=== PATIENT | male | born 1965 | race Caucasian/White ===

== ENCOUNTER 2018-04-28 07:33 | Day surgery (SDC) | payer OTHER, SELFPAY ==
[2018-04-28 08:19] VITALS: BP 133/91; PULSE 78; RESP 16; TEMP 36.2; O2SAT 99
[2018-04-28] MEDS: Lactated Ringers 1,000 ML 30 ML IV (08:50)
[2018-04-28] MEDS: Bupivacaine LIPOSOME/PF 133 MG/10 ML VIAL IJ (10:11)
[2018-04-28] MEDS: Lidocaine 1% Multi-Dose 50 ML VIAL (10:56)
[2018-04-28] MEDS: Acetaminophen 325 MG TAB 650 MG PO (11:38)
[2018-04-28 11:55] VITALS: BP 113/75; PULSE 71; RESP 18; TEMP 36.1; O2SAT 96
[2018-04-28] MEDS: traMADol 50 MG TAB PO (12:45)
[2018-04-28 14:16] VITALS: BP 119/73; PULSE 71; RESP 16; TEMP 36.2; O2SAT 98
--- NOTE | 2018-04-28 15:29 | ROE_ITS ---
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 Pain developed about 6 months ago after lifting some heavy equipment. He subsequently noted a bulge in the left groin. Continues to experience pain with lifting heavy objects, pushing objects, or pulling heavy objects. Pain is nonradiating. Is always associated with a lump in his groin. The lump does disappear when he lays flat. He denies any associated fever chills, nausea, vomiting, or constipation. It was recommended he undergo open repair of the left inguinal hernia. The procedure was discussed with him, and the risk of the procedure were discussed. All his questions were answered to his satisfaction. Consent was obtained to proceed with open left inguinal hernia repair. Findings: The left inguinal canal was explored and a large cord lipoma and indirect hernia sac were identified. The hernia sac and cord lipoma were subsequently resected mesh was placed to reinforce the floor the inguinal canal. Procedure Description: The patient was brought to the operating room. A time-out was completed verifying correct patient , procedure, site , allergies, medications, positioning, implants, and fire risk, prior to beginning the procedure. MAC anesthesia was induced. The left groin was prepped with chloraprep, and draped in the standard sterile fashion. The pubic tubercle, and anterior superior iliac spine (ASIS) were marked. A skin incision was marked starting just laterally to the pubic tubercle in a linear oblique fashion toward the ASIS. A field block was produced by injecting local along the proposed skin incision. Additional local anesthesia was injected during the procedure under the external oblique aponeurosisto , just medial to the ASIS, to block the ilioinguinal nerve. Addition local was injected as needed during the case. I began by incising the previously marked incision line with a scalpel. The incision was deepened though Martinez's and Camper's fascia with electocautery down until the aponeurosis of the external oblique was encountered. This was cleaned and the external ring exposed. Hemostasis was obtained in the wound with cautery. A stab incision was made in the midportion of the external oblique aponeurosis in the parallel to the fibers. Flaps of the external oblique were developed cephalad, and inferiorly. The cord was identified, gently dissected at the pubic tubercle, and encircled with a chan drain, The cord was then explored, the vas deferens, and testicular vesicles were protected a indirect hernia sac was found anteromedially to the cord, which was subsequently dissected, twisted, and suture ligated after its contents were reduced. The redundant sac was discarded, and the remainder reduced. The femoral canal was palpated and no hernia was identified. A large cord lipoma was also found, and subsequently suture ligated at the level of the internal ring. I then placed a mesh to re-enforce the floor of the inguinal canal, and create a new internal ring. The floor of the inguinal canal was cleaned medially over the pubic tubercle, cephalad over the conjoint tendon, laterally over the aponeurosis of the internal oblique, and inferiorly the inguinal ligament. A mesh was then laid in the floor of the canal with the mesh overlying the pubic tubercle medially, conjoint tendon cephalad, internal oblique aponeurosis laterally, and shelving edge of inguinal ligament inferiorly. The mesh was then inspected for apposition to the tissue, and pressed into place. The tip of a Debakey forceps easily passed through the new internal ring next the cord structures. The wound was then irrigated. Hemostasis again checked, and chan drain removed. I closed the wound in layers, with 2-0 vicryl for the external oblique in a running fashion, 3-0 vicryl to approximate Martinez's fascia, and the skin was closed with 4-0 vicryl with a running subcuticular fashion. A dressing was applied. The count was reported correct times two. No apparent complications during the case. The patient was brought to the PACU in good condition.
--- NOTE | 2018-04-28 15:40 | PDOC.DSDIS_ITS ---
Discharge Plan Disposition Patient Disposition: HOME Condition: Good Discharge Details Reason For Visit: left inguinal hernia repair Attending Provider: Jay Hollins Primary Care Provider: Vikash Aguero Home Meds and New Rx's Prescriptions: New acetaminophen [Tylenol] 325 mg Tablet 650 mg PO Q4H PRN PRNQty: 0 RF: 0 tramadol 50 mg Tablet 50 mg PO Q6H PRN PRNQty: 12 RF: 0 Continued ibuprofen [Advil] 200 mg Tablet 200 mg PO QID PRNRF: 0 Discharge Instructions Instructions: Inguinal Hernia Repair (DC) Additional Instructions: Dr. Jay Hollins Post-Operative Discharge Instructions 1. Because there will be medication in your system for the next 24 hours, you may feel a little sleepy. Your coordination will be affected. Therefore: * Do not drive or operate dangerous equipment for 24 hours. * Do not drink alcohol beverages for 24 hours (not even beer). * Plan to go home and rest for the day. Restrictions: * Do not lift, push, or pull, over 20lbs for 6 weeks. * No strenuous bending or twisting for 6 weeks, if it hurts stop. * No baths, you can shower. Let warm soapy water run over wound, then pat wound dry. Activity: * The day of surgery spend most of the day resting in a comfortable bed or recliner. 2-3 times during the day get up and walk around the house. * The day after surgery, or after your discharge, walk at least 3 times a day and spend increasing amounts of time walking and sitting up. If you are tired rest, but keep moving as able. Diet: * Resume home diet as tolerated. * Start with a light diet, your appetite will improve with time. * Drink at least 4-6 glasses of water per day to keep hydrated. Wound Care: * Removed dressing in 24 hrs, Skin glue will wear off with time. * You may cover the wound with a dry sterile dressing to keep clothing from rubbing against the wound. Call for appointment . Continue all your regular medications unless directed otherwise. Call the office or the Hospital Biomedical Equipment Technician , If you have: * Pain not controlled with pain medication. * Nausea and vomiting. * Temperature greater than 101 degrees Fahrenheit. * Drainage from your wound that soaks through your dressing. *No more than 4000 milligrams of Tylenol in 24 hours. Narcotic pain medication can be constipating, if you have not had a bowel movement within 3 days use a laxative, I recommend Milk of Magnesia (MOM) 1oz. every 6 hrs until you have a bowel movement. I understand the above instructions and have no questions. Signature of Patient or Responsible Adult Escort Date/Time Name of Responsible Adult Escort Signature of Nurse Date/Time Revised 08/26/10 Stand Alone Forms: Aaliyah Munroe (DSU) Referrals: Jay Hollins DO [ [facility] STAFF PHYSICIAN] - 05/12/18 9:00 am (Follow up after Inguinal Hernia repair) Activity:: see instructions Remove Dressings/Wound Care:: 24 hours Shower/Bathe:: 24 hours Diet:: As Tolerated Discharge Orders Discharge Orders: Discharge Order (Routine); Ordered 04/28/18 Ordered By: Jay Hollins Discharge Data Discharge Date/Time-TO BE ENTERED AT DEPARTURE: 04/28/18 14:26 DS: Diagnosis Discharge Diagnosis (1) Left inguinal hernia: Status: Acute Asessment and Plan: Open inguinal Hernia repair performed
== END 2018-04-28 14:26 | disposition home or self-care (01) ==
PROVIDERS: PCP Family Medicine; Visit Provider Surgery
PROC: (CPT 49505; principal; 2018-04-28 09:00)
DX: K40.90 Unilateral inguinal hernia, without obstruction or gangrene, not specified as recurrent (principal); D17.6 Benign lipomatous neoplasm of spermatic cord
CPT/HCPCS: 49505; C1781; J0690; J1885; J2250; J2405

== ENCOUNTER 2021-03-26 02:54 | Emergency (ER) | payer OTHER, SELFPAY ==
[2021-03-26] VITALS (14 sets, daily range): BP systolic 111–123; BP diastolic 70–86; PULSE 61–87; RESP 14–23; TEMP 36.5; O2SAT 96–99
--- NOTE | 2021-03-26 03:00 | RT.EKG_ITS ---
APPROVED REPORT Exam: Resting ECG Reason for Exam: chest pain Patient Location: E HR:68 bpm ECG Measurements Heart Rate 68 AXIS MD 183 P 42 QRSd 110 QRS 24 QT 388 T -1 QTc 412 Conclusion Sinus rhythm...normal P axis, V-rate 60- 99
--- NOTE | 2021-03-26 03:00 | DI.RAD_ITS ---
Exam(s) XR PORTABLE CHEST AP EXAM: XR PORTABLE CHEST AP CLINICAL HISTORY: syncope, fever. TECHNIQUE: 2D digital imaging was performed. COMPARISON: No exams were available for comparison FINDINGS: LUNGS: Clear. No pleural abnormality seen. HEART: Normal. MEDIASTINUM: Normal. OTHER FINDINGS: None. IMPRESSION: No acute pulmonary findings. DATA REPOSITORY: RADIATION DOSE DELIVERED: Total DLP
--- NOTE | 2021-03-26 03:13 | W.ED.GENAD ---
Discharge Plan Disposition Patient Disposition: HOME Condition: Improving Discharge Details Clinical Impression: Syncope, Acute dehydration, Viral syndrome Primary Care Provider: Vikash Aguero ED Provider: Shree Colon Home Meds and New Rx's Prescriptions: Continued ibuprofen [Advil] 200 mg Tablet 200 mg PO QID PRNRF: 0 acetaminophen [Tylenol] 325 mg Tablet 650 mg PO Q4H PRN PRNQty: 0 RF: 0 Discharge Instructions Instructions: Dehydration (ED), Syncope (ED), Viral Syndrome (ED) Additional Instructions: Your COVID-19 test is pending. You will receive a call from our staff once it has resulted. Continue small, frequent sips of fluids to maintain good hydration today. Slowly advance your diet. Your work-up in the emergency department included chest x-ray, negative influenza screening, blood work including cardiac troponins. Please follow-up with regular doctor if not improving in 2 to 3 days time. Stand Alone Forms: PENDING COVID-19 TESTING Medical Decision Making 56-year-old male states he has had 3 days of fever, chills, body ache, and dry cough. States he was in bed, awoke to use the bathroom, felt weak and lightheaded and sick to the ground with a question of a brief episode of syncope. There was no seizure-like activity, patient did not turn blue or have cessation of breathing. EMS was called and patient brought to the ER. He arrives to the ER improved, oxygenating normally with a pulse in the 70s. Differential diagnosis is broad and includes dehydration, vagal mediated syncope, viral syndrome, must exclude cardiac event. Placed on a molybdenum steamer operator, given fluid bolus, referred for laboratory testing & chest x-ray. Chest x-ray without acute findings. Laboratories do note a white count of 13, hematocrit 44, platelets 236. Sodium 139, potassium 4.3, chloride 106, BUN 13, creatinine 1.0. Note is made of albumin 3.2. Troponin negative x2. Negative influenza screening . Patient did receive 3 L of fluid before being able to produce urine. The patient felt improved, able to ambulate and take liquids by mouth without difficulty. Stable and appropriate for discharge to home. HPI General Mode of arrival: EMS. Date/Time Provider Initiated Documentation: 03/26/21 02:56. Limitations to Documentation: no limitations. Information obtained by: patient and EMS. History of Present Illness 56 year old M presents to the emergency department with the chief complaint of Syncope at home, fever this week, described as moderate, Patient reports no radiation. Patient started experiencing this day(s) and it has been intermittent. No relieving factors improve symptom(s), No exacerbating factors reported . Patient notes cough, fever/chills, syncope and other (Body ache, dry cough); denies chest pain and shortness of breath. Patient did receive the following treatments prior to arrival, none Related Data Home Medications Medication Instructions Recorded Confirmed acetaminophen [Tylenol] 650 mg PO Q4H PRN PRN #0 tab 04/28/18 07/27/18 ibuprofen [Advil] 200 mg PO QID PRN 04/28/18 07/27/18 Previous Rx's Medication Instructions Recorded acetaminophen [Tylenol] 650 mg PO Q4H PRN PRN #0 tab 04/28/18 Allergies Allergy/AdvReac Type Severity Reaction Status Date / Time No Known Allergies Allergy Verified 07/27/18 11:30 Review of Systems Narrative: Dry cough, body ache, fever and chills, cough children. Immunized against COVID-19. Feels improved. Denies chest pain. No headache. No injury, no neck or back pain. 8 systems reviewed and otherwise negative [facility] Active Problem List (Updated 03/26/21 @ 07:10 by Shree Colon MD) Syncope (Chronic) Acute dehydration (Acute) Viral syndrome (Acute) Well adult (Acute) Well adult (Chronic) Grade II hemorrhoids (Chronic 09/04/17) Left inguinal hernia (Acute) Medical History (Updated 03/26/21 @ 07:10 by Shree Colon MD) Lower urinary tract symptoms (LUTS) Surgical History Appendectomy H/O left inguinal hernia repair (04/28/18) Dr Hollins Family History Mother Hyperlipidemia Father Hyperlipidemia Sister No problems noted. Sister No problems noted. Sister No problems noted. Sister No problems noted. Brother No problems noted. Son No problems noted. Family history Diabetes Heart disease Neoplasm Social History Smoking/Tobacco Use Status: Never Smoking risk assessment performed?: Yes Alcohol Intake: current Alcohol Intake frequency: 0-2 drinks per day Drug use: Never Substance use type: does not use Household members: spouse and children Housing: house Do you need help understanding health information?: Rarely Pets and animals: Yes Pets and animals: dog(s) and farm animals Sexually active: Yes Do you think of yourself as: straight/heterosexual Current gender identity: male What is your relationship status?: How often do you talk on the phone with friends or family?: decline to answer How often do you get together with friends or relatives?: decline to answer How often do you attend lutheran or christian services?: decline to answer Do you belong to any clubs or organized social groups?: no Panel score (0-1 are the most socially isolated patients): 1 What type of physical activity do you participate in: decline to answer Duration: decline to answer Frequency: decline to answer Doris/Catholic: Yarsani Special doris needs: No Seatbelt use: always Helmet use: Yes Drive intox or ride w/intox chassis driver: No Do you feel safe at home: Yes Do you feel safe in your relationship?: Yes Exam Narrative Exam Narrative: GEN: awake, alert, oriented 3. Pleasant, well groomed, interactive. HEAD: Normocephalic, atraumatic ENT: Mucous membranes dry, oropharynx unremarkable, External ear exam unremarkable EYES: PERRL, EOMI NECK: Full ROM, no ANNIE, no menigismus CHEST/RESP: Nontender, clear to auscultation bilateral, no wheeze/rhonchi/rales CARDIOVASCULAR: RRR, no murmur, rub lesli. 2+ Rad pulse bilateral ABDOMEN: Soft, nontender, no mass. +Bowel sounds EXT: Full ROM, no edema, no rash Neuro: Grossly normal neurologic exam, conversant, interactive. Psych: Speech fluent, thoughts congruent, affect normal
[2021-03-26] MEDS: Normal Saline 1,000 ML 1000 ML IV ×3 (03:15→06:55)
[2021-03-26 03:21] LABS: Abs Immature Grans 0.05 10^3/uL (0.0-0.06); Absolute Basophil Count 0.04 10^3/uL (0.0-0.2); Absolute Eosinophil Count 0.21 10^3/uL (0.0-0.7); Absolute Lymphocyte Count 1.51 10^3/uL (1.2-3.4); Absolute Neutrophil Count 10.95 10^3/uL (1.2-6.7); Basophils % 0.3; Eosinophils % 1.5; HCT 44.4 % (40.0-50.0); HGB 14.4 g/dL (13.5-17.5); Immature Grans % 0.4; Lymphocytes % 10.9; MCH 28.6 pg (27.0-33.0); MCHC 32.4 % (32.0-36.0); MCV 88.1 fL (80-95); MPV 10.2 fL (8.0-11.0); Monocytes % 7.9; Nucleated RBC 0 %; Platelet Count 236 10^3/uL (130-400); RBC 5.04 10^6/uL (4.36-5.78); RDW 13.1 % (11.8-14.1); RDW-SD 42.5 fL; WBC 13.86 10^3/uL (4.4-10.8)
[2021-03-26 03:22] LABS: Absolute Monocyte Count 1.09 10^3/uL (0.1-0.8)
[2021-03-26 03:33] LABS: ALT 32 U/L (16-63); AST 21 U/L (15-37); Albumin 3.2 g/dL (3.4-5.0); Alkaline Phosphatase 69 U/L (46-116); BUN 13 mg/dL (7-18); Bilirubin, Total 0.6 mg/dL (0.2-1.0); Chloride 106 mmol/L (98-107); Glucose 155 mg/dL (74-106); Magnesium 1.9 mg/dL (1.8-2.4); Potassium 4.3 mmol/L (3.5-5.1); Sodium 139 mmol/L (136-145); Total Protein 6.7 g/dL (6.4-8.2); Troponin I < 0.05 ng/mL (<0.06)
--- NOTE | 2021-03-26 04:02 | DI.VRAD_ITS ---
PROCEDURE INFORMATION: Exam: XR Chest Exam date and time: 03/26/2021 3:13 AM Age: 56 years old Clinical indication: Fever and other: Syncope; Patient HX: Syncope, fever TECHNIQUE: Imaging protocol: XR of the chest. Views: 1 view. COMPARISON: No relevant prior studies available. FINDINGS: Lungs: Unremarkable. No consolidation. Pleural spaces: Unremarkable. No pleural effusion. No pneumothorax. Heart/Mediastinum: Unremarkable. No cardiomegaly. Bones/joints: Moderate arthropathy noted in both shoulders. Narrowing of the acromial humeral space is noted, suggesting chronic rotator cuff pathology. IMPRESSION: No acute cardiopulmonary abnormality. Dictated and Authenticated by: Noah Gonzalez MD. Ordering:CARMELITA Swann MD
--- NOTE | 2021-03-26 04:20 | NUR.NOTE ---
Nursing Note: Patient IV Fluids completed. RN attempted to collect urine specimen per order however, patient denied needing to voice. Dr. Colon notified of completed fluids and patient inability to provide sample; Dr. Colon ordered to administer an additional bolus of NS 1,000 mL.
--- NOTE | 2021-03-26 05:18 | NUR.NOTE ---
Nursing Note: Patient resting in bed at this time with eyes closed. Respirations even and non-labored. Vital signs remain stable. No signs of distress noted at this time. Call light within reach of patient.
[2021-03-26 06:28] LABS: Troponin I < 0.05 ng/mL (<0.06)
[2021-03-27 15:03] LABS: COVID-19 RT-PCR UVMMC Result Negative (Negative)
--- NOTE | 2021-03-29 08:48 | NUR.NOTE ---
negative flu and covid result relayed to pt via phone.Nursing Note:
== END 2021-03-26 08:18 | disposition home or self-care (01) ==
PROVIDERS: Emergency Provider Emergency Medicine; PCP Family Medicine
DX: R55 Syncope and collapse (principal); R50.9 Fever, unspecified; R07.9 Chest pain, unspecified; E86.0 Dehydration; B34.9 Viral infection, unspecified; Z20.822 Contact with and (suspected) exposure to COVID-19
CPT/HCPCS: 80053; 87449; 93005; 96360; 96361; 99284; U0003; 71045; 81003; 83735; 84484; 85025; 93010

== ENCOUNTER 2022-06-17 08:56 | Outpatient (CLI) | payer OTHER, SELFPAY ==
[2022-06-17 12:53] LABS: Calculated LDL 85 mg/dL (<100); Cholesterol 174 mg/dL (<200); HDL Cholesterol 64 mg/dL (40-60); Triglyceride 125 mg/dL (<150)
== END 2022-06-17 08:57 | disposition home or self-care (01) ==
LOC: LOS 08:56
PROVIDERS: PCP Family Medicine; Referring Provider Family Medicine; Visit Provider Family Medicine
DX: E78.5 Hyperlipidemia, unspecified (principal); Z12.5 Encounter for screening for malignant neoplasm of prostate
CPT/HCPCS: 36415; 80061; 84153

== ENCOUNTER 2022-12-17 17:32 | Emergency (ER) | payer OTHER, SELFPAY ==
[2022-12-17 17:35] VITALS: BP 125/78; PULSE 65; RESP 14; TEMP 36.4; O2SAT 98
--- NOTE | 2022-12-17 17:45 | DI.RAD_ITS ---
Exam(s) XR ANKLE LT COMPLETE EXAM: XR ANKLE LT COMPLETE CLINICAL HISTORY: pain. TECHNIQUE: 2D digital imaging was performed. COMPARISON: No exams were available for comparison FINDINGS: 3 views There is soft tissue swelling over the lateral malleolus but no fracture evident. No evidence of acute fracture or widening of the ankle mortise. Talar dome appears unremarkable. Os seous density subjacent to the medial malleolus is most probably an accessory ossicle and does not benítez ve the appearance of a typical avulsion fragment. No tarsal coalition evident. IMPRESSION: No acute fracture evident. DATA REPOSITORY: RADIATION DOSE DELIVERED:
--- NOTE | 2022-12-17 17:48 | W.ED.GENAD ---
Discharge Plan Disposition Patient Disposition: Home Condition: Stable Discharge Details Clinical Impression: Left ankle sprain Primary Care Provider: Vikash Aguero ED Provider: Noah Anthony Home Meds and New Rx's Prescriptions: Continued ibuprofen [Advil] 200 mg Tablet 200 mg PO QID PRN Patient Comments: no longer taking 12/17/22 acetaminophen [Tylenol] 325 mg Tablet 650 mg PO Q4H PRN PRNQty: 0 0RF Patient Comments: no longer taking 12/17/22 Discharge Instructions Instructions: Ankle Sprain (ED) Additional Instructions: Follow up with your primary care provider if not improving in a week use the walking boot until pain free If you feel more ill or have severe worsening pain return to the emergency department Medical Decision Making 57 yo male comes in after he was stepping off his tractor and rolled his left ankle. Denies hitting head or loc, no other injuries and no pain elsewhere. HE arrives stable speaking clearly in no distress. He localizes the pain to the left lateral ankle without visible or palpable deformities. No tenderness in the knee or proximal/mid tib/fib. He has full rom and intact sensation and pulses, no pain over the metatarsals. Suspect sprain but will xray to evaluate for for fracture. imaging negative, pt stable, suspect sprain, will place in walking boot and he has crutches and advised to use as needed, weight bearing as tolerated. Advised to f/u with pcp if not improving within a week Differential Diagnosis Differential Diagnosis: sprain, strain, fracture Imaging Data Radiologic Study: Attestation: I personally reviewed and interpreted this imaging study as follows: Imaging: X-Ray My impression: no acute findings HPI General Date/Time Provider Initiated Documentation: 12/17/22 17:40. Limitations to Documentation: no limitations. Information obtained by: patient. History of Present Illness 57 year old M presents to the emergency department with the chief complaint of left ankle pain, described as moderate, Patient started experiencing this minute(s) (15) and it has been constant. No relieving factors improve symptom(s), No exacerbating factors reported . Patient notes no other symptoms.. Patient did receive the following treatments prior to arrival, none Related Data Home Medications Medication Instructions Recorded Confirmed acetaminophen 325 mg tablet 650 mg PO Q4H PRN PRN #0 tabs 04/28/18 06/17/22 (Tylenol) ibuprofen 200 mg tablet (Advil) 200 mg PO QID PRN 04/28/18 06/17/22 Previous Rx's Medication Instructions Recorded acetaminophen 325 mg tablet 650 mg PO Q4H PRN PRN #0 tabs 04/28/18 (Tylenol) Allergies Allergy/AdvReac Type Severity Reaction Status Date / Time No Known Allergies Allergy Verified 12/17/22 17:37 General Stated Complaint: Orthopedic GRIS: 4 Review of Systems All systems reviewed & are unremarkable except as noted in HPI and below Constitutional Constitutional: Denies chills, Denies fever(s) and Denies weakness Cardiovascular Cardiovascular: Denies chest pain and Denies dyspnea Respiratory Respiratory: Denies cough and Denies dyspnea Gastrointestinal Gastrointestinal: Denies abdominal pain, Denies nausea and Denies vomiting Neurologic Neurologic: Denies weakness PFSH All Active Problems (Updated 12/17/22 @ 19:03 by Noah Anthony MD) Syncope (Chronic) Acute dehydration (Acute) Viral syndrome (Acute) Left ankle sprain (Acute) Well adult (Acute) Well adult (Chronic) Grade II hemorrhoids (Chronic 09/04/17) Left inguinal hernia (Acute) Return to office as needed Medical History (Updated 12/17/22 @ 19:03 by Noah Anthony MD) Lower urinary tract symptoms (LUTS) Surgical History Appendectomy H/O left inguinal hernia repair (04/28/18) Dr Hollins Family History Mother Hyperlipidemia Father Hyperlipidemia Sister No problems noted. Sister No problems noted. Sister No problems noted. Sister No problems noted. Brother No problems noted. Son No problems noted. Family history Diabetes Heart disease Neoplasm Social History (Updated 06/18/22 @ 16:09 by Dulce Maria Sexton) Smoking/Tobacco Use Status: Never Second Hand Exposure: Yes Smoking risk assessment performed?: Yes Alcohol Intake: current Alcohol Intake frequency: a few times a week Alcohol type: beer Drug use: Never Substance use type: does not use Household members: spouse and children Housing: house Do you need help understanding health information?: Rarely Pets and animals: Yes Pets and animals: dog(s) and farm animals Sexually active: Yes Do you think of yourself as: straight/heterosexual Current gender identity: male What is your relationship status?: How often do you talk on the phone with friends or family?: decline to answer How often do you get together with friends or relatives?: decline to answer How often do you attend latter day or samaritan services?: decline to answer Do you belong to any clubs or organized social groups?: no Panel score (0-1 are the most socially isolated patients): 1 What type of physical activity do you participate in: decline to answer Duration: decline to answer Frequency: decline to answer Doris/Spiritism: Congregation Special doris needs: No Seatbelt use: always Helmet use: Yes Drive intox or ride w/intox team driver: No Do you feel safe at home: Yes Do you feel safe in your relationship?: Yes Exam Const General: no acute distress Orientation: alert HENMT Head: normal to inspection Ears: external ears normal General nose exam: external nose normal Mouth: moist mucous membranes Eyes General: appearance normal, both eyes and all related structures Neck Neck: normal visual inspection Resp Effort & Inspection: normal respiratory effort and able to speak in complete sentences Cardio Rate: regular rate Skin General skin exam: no rashes or lesions noted Neuro General: patient alert and patient oriented x3 Extrem General: normal to inspection, full ROM and capillary refill normal Psych Mental Status: mental status grossly normal Course Vital Signs Vital signs: Vital Signs Temperature 36.4 C L 12/17/22 17:35 Pulse 65 12/17/22 17:35 Respiratory Rate 14 12/17/22 17:35 Blood Pressure 125/78 12/17/22 17:35 Pulse Oximetry 98 12/17/22 17:35 Temperature 36.4 C L 12/17/22 17:35 Temperature Source Skin 12/17/22 17:35 Pulse 65 12/17/22 17:35 Respiratory Rate 14 12/17/22 17:35 Blood Pressure 125/78 12/17/22 17:35 Blood Pressure Position Sitting 12/17/22 17:35 Pulse Oximetry 98 12/17/22 17:35 Oxygen Delivery Method Room Air 12/17/22 17:35 Oxygen Flow Rate 0 12/17/22 17:35 Pain Level 7 12/17/22 17:35
[2022-12-17] MEDS: Ibuprofen 600 MG TAB PO (18:02)
== END 2022-12-17 19:29 | disposition home or self-care (01) ==
PROVIDERS: Emergency Provider Emergency Medicine; PCP Family Medicine
DX: S93.402A Sprain of unspecified ligament of left ankle, initial encounter (principal); X50.1XXA Overexertion from prolonged static or awkward postures, initial encounter
CPT/HCPCS: 99283; 73610

== ENCOUNTER 2023-06-18 12:23 | Outpatient (CLI) | payer OTHER, SELFPAY ==
[2023-06-18 13:38] LABS: Glucose 99 mg/dL (74-106)
[2023-06-18 22:26] LABS: PSA, Screening 2.4 ng/mL (<=3.5)
== END 2023-06-18 12:24 | disposition home or self-care (01) ==
LOC: LBO 12:23
PROVIDERS: PCP Family Medicine; Visit Provider Family Medicine
DX: Z12.5 Encounter for screening for malignant neoplasm of prostate (principal); R73.9 Hyperglycemia, unspecified
CPT/HCPCS: 36415; 82947; 84153

== ENCOUNTER 2024-02-04 02:00 | Outpatient (CLI) | payer OTHER, SELFPAY | END 2024-02-04 02:01 | disposition home or self-care (01) | LOC: LBO 02:00 | PROVIDERS: PCP Family Medicine; Visit Provider Family Medicine | DX: C61 Malignant neoplasm of prostate (principal) | CPT/HCPCS: 36415; 84153 ==